=== PATIENT | male | born 1955 | race Caucasian/White ===

== ENCOUNTER 2016-10-29 08:21 | Outpatient (CLI) | payer BC | END 2016-10-29 08:22 | LOC: NAVSJIPCSP 08:21 | PROVIDERS: ATTEND Internal Medicine | DX: E78.5 Hyperlipidemia, unspecified (principal) | CPT/HCPCS: 36415; 80061 ==

== ENCOUNTER 2017-03-04 08:18 | Outpatient (CLI) | payer BC ==
[2017-03-04 12:41] LABS: Cardiac Risk 4.5 (Less than 4.5)
== END 2017-03-04 08:19 | disposition home or self-care (01) ==
LOC: NAVSJIPCSP 08:18
PROVIDERS: ATTEND Internal Medicine
DX: E78.5 Hyperlipidemia, unspecified (principal)
CPT/HCPCS: 36415; 80061

== ENCOUNTER 2018-11-22 09:29 | Outpatient (CLI) | payer MEDICARE ==
--- NOTE | 2018-11-22 12:29 | RAD ---
4 VIEWS RIGHT KNEE: Date: 11/22/18 COMPARISON: None. HISTORY: Chronic knee pain for 2 months, no history of injury. FINDINGS: Moderate medial compartment narrowing and mild lateral compartment narrowing. No fracture or dislocat ion. Mild patellofemoral joint space narrowing. No knee joint effusion. Atherosclerotic calcification noted posterior to the right knee. IMPRESSION: No acute osseous abnormality. POS: [facility]
== END 2018-11-22 09:30 | disposition home or self-care (01) ==
LOC: NAV RAD 09:29
PROVIDERS: ATTEND Family Medicine
DX: M25.561 Pain in right knee (principal)

== ENCOUNTER 2020-08-01 18:21 | Emergency (ER) | payer MEDICARE ==
[2020-08-01 19:00] LABS: #Basophils 0.1 thou/uL (0.0-0.2); #Eosinphils 0.1 thou/uL (0.0-0.7); #Monocytes 0.7 thou/uL (0.11-0.59); #Neutrophils 4.8 thou/uL (1.40-6.50); %Basophils 1.4 % (0.0-1.0); %Eosinophils 1.5 % (0.0-10.0); %Monocytes 9.5 % (0.0-10.0); %Neutrophils 61.6 % (42.0-75.0); Hemoglobin 14.3 g/dL (14.0-18.0); Mean Corpuscular HGB CONC 33.5 g/dL (32.0-36.0); Mean Corpuscular Volume 92.6 fL (78.0-98.0); Mean Platelet Volume 6.9 fL (7.4-10.4); Platelet Count 226 thou/uL (130-400); RBC Distribution Width 11.6 % (11.5-14.5); Red Blood Cell (RBC) Count 4.63 mill/uL (4.70-6.10); White Blood Cell (WBC) Count 7.8 thou/uL (4.8-10.8)
[2020-08-01 19:21] LABS: ALT (SGPT) 24 U/L (8-55); AST (SGOT) 15 U/L (5-34); Albumin 4.1 g/dL (3.4-4.8); Alkaline Phosphatase 35 U/L (40-110); Anion Gap 17 mmol/L (10-20); BUN (Urea Nitrogen) 29 mg/dL (8.4-25.7); Bilirubin, Total 0.3 mg/dL (0.2-1.2); CK (CPK) 64 U/L (30-200); Calc. Creatinine Clearance 0 mL/min (70-130); Calcium 9.2 mg/dL (7.8-10.44); Carbon Dioxide 23 mmol/L (23-31); Chloride 98 mmol/L (98-107); Globulin 2.4 g/dL (2.4-3.5); Glucose 136 mg/dL (80-115); Potassium 4.2 mmol/L (3.5-5.1); Protein, Total 6.5 g/dL (5.8-8.1); Sodium 134 mmol/L (136-145)
[2020-08-01 19:37] LABS: Bilirubin Negative (Negative); Blood, Urine Negative (Negative); Clarity SL HAZY (Clear); Glucose, Urine (Dipstick) Negative (Negative); Ketone, Urine Negative (Negative); Leukocyte Negative (Negative); Nitrite Negative (Negative); Protein, Urine (Dipstick) Trace mg/dL (Neg-Trace); Specific Gravity, Urine 1.025 (1.005-1.030); Urobilinogen 0.2 mg/dL (Less than 2); pH, Urine 5.5 (5.0-9.0)
--- NOTE | 2020-08-02 07:32 | CT ---
CT OF BRAIN PERFORMED WITHOUT CONTRAST ENHANCEMENT: 08/01/20 HISTORY: Altered mental status. COMPARISON: 09/30/13 study. Ventricular and cisternal system is within normal limits. No signs of intracerebral hemorrhage or ext ra-axial fluid collections. The right mastoid air cells are poorly aerated. The visualized sinuses sh ow some ethmoid air cell mucosal change. IMPRESSION: No acute intracranial abnormalities. POS: [facility]
== END 2020-08-01 21:06 | disposition short-term general hospital (02) ==
LOC: NAV ERS 18:21
DX: R41.82 Altered mental status, unspecified (principal); I10 Essential (primary) hypertension; Z87.891 Personal history of nicotine dependence; Z79.899 Other long term (current) drug therapy
CPT/HCPCS: 36416; 70450; 80053; 81003; 82550; 84484; 85025; 93005

== ENCOUNTER 2025-08-08 13:43 | Outpatient (CLI) | payer MEDICARE | END 2025-08-08 13:44 | disposition home or self-care (01) | LOC: NAV RAD 13:43 | PROVIDERS: ATTEND Internal Medicine Rheumatology | DX: R06.02 Shortness of breath (principal) | CPT/HCPCS: 71046 ==